=== PATIENT | male | born 2000 | race Caucasian/White ===

== ENCOUNTER 2021-12-15 20:58 | Emergency (ER) | payer BC ==
[~2021-12-15] VITALS: Ht 175.3 cm; Wt 90.9 kg
[2021-12-15 21:04] VITALS: BP 132/70
== END 2021-12-15 21:16 | disposition left against medical advice (07) ==
LOC: EMS 20:59
DX: M79.641 Pain in right hand (principal); Z53.21 Procedure and treatment not carried out due to patient leaving prior to being seen by health care provider